=== PATIENT | female | born 1975 | race Caucasian/White ===

== ENCOUNTER 2024-06-29 09:19 | Emergency (ER) | payer BC, SELFPAY ==
[2024-06-29 12:35] LABS: % Basophils 0.7 % (0-2); % Eosinophils 7.4 % (0-6); % Immature Granulocytes 0.4 % (0-0.5); % Lymphocytes 21.8 % (20.5-51.1); % Monocytes 8.3 % (1.7-9.3); % Neutrophils 61.4 % (42.2-75.2); Absolute Basophils 0.1 10^3/uL (0-0.2); Absolute Eosinophils 0.6 10^3/uL (0-0.7); Absolute Lymphocytes 1.8 10^3/uL (1.2-3.4); Absolute Monocytes 0.7 10^3/uL (0.1-0.6); Hematocrit 40.1 % (37.0-47.0); Hemoglobin 13.9 g/dL (12.0-16.0); Mean Corp Hgb Conc. 34.7 g/dL (33.0-37.0); Mean Corpuscular Hgb 31.1 pg (27.0-31.0); Mean Corpuscular Volume 89.7 fL (81.0-99.0); Mean Platelet Volume 9.6 fL (7.4-10.4); Nucleated Red Blood Cells % 0 %; Platelet Count 313 10^3/uL (130-400); Red Blood Cell Count 4.47 10^6/uL (4.20-5.40); Red Cell Dist. Width 12.8 % (11.5-14.5); White Blood Cell Count 8.2 10^3/uL (4.8-10.8)
[2024-06-29 12:47] LABS: INR 0.98; PT 13.3 Sec (11.4-14.6)
[2024-06-29 12:48] LABS: APTT 27.6 Sec (23.4-35.0)
--- NOTE | 2024-06-29 12:57 | ED.GENMED ---
History of Present Illness
General
Chief Complaint: Skin Problem
Source: patient
Exam Limitations: none
Time Seen by Provider: 06/29/24 10:12
Nursing documentation reviewed up to this point in time: agreed with
History of Present Illness
History of Present Illness:
Patient is a 48-year-old female who presents to the ER for evaluation of leg bruising. Patient has a history of spider veins/varicose veins and noticed several days ago a new spider vein to her left lateral lower leg. This was on Saturday. In
addition she had a pedicure and had calf massage had her jeans raised up to this area so they could massage her lower leg. 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
and may have bumped on the dumpster. Since then she has noticed increasing bruising and bruising has extended down to the ankle and foot area. She denies any pain. She denies any swelling. She denies any injury. She is not on blood thinners.
She does take Motrin twice a day for joint aches. No prior history of DVT PE.
Review of Systems
Review of Systems
Allergies reviewed?: Yes
All Other Systems: ROS reviewed and negative except as documented in HPI and ROS
Constitutional: Reports no symptoms; Denies fever, fatigue or chills
Respiratory: Reports no symptoms
Cardiac: Reports no symptoms
ABD/GI: Reports no symptoms
Musculoskeletal: Reports other (bruising to left leg no lower extremity swelling )
Skin: Reports no symptoms
Phy Exam
General Physical Exam
General Presentation: no apparent distress
General age: appears stated age
General Skin: warm and dry
General Habitus: normal
General Mental: alert
Course
Orders/Labs/Results
Orders:
Orders
06/29/24 10:37
Venous Doppler Lwr Ext Left [US Periph Venous LOWER Ext LT] Urgent
Comment:
Reason For Exam: bruising /discomort
06/29/24 12:22
Complete Blood Count/With Diff Urgent
Comprehensive Metabolic Panel Urgent
PTT Urgent
Prothrombin Time Urgent
Abnormal Lab Results
06/29/24
12:22
MCH 31.1 H pg
(27.0-31.0)
Absolute Monos (auto) 0.7 H 10^3/uL
(0.1-0.6)
Eosinophils % 7.4 H %
(0-6)
Creatinine 0.5 L mg/dL
(0.6-1.0)
06/29/24 12:22
06/29/24 12:22
Vital Signs
Initial and Last Documented VS:
Initial Vital Signs
Temp Pulse Resp Pulse Ox
98.2 F 78 16 98
06/29/24 09:21 06/29/24 09:21 06/29/24 09:21 06/29/24 09:21
Last Documented Vital Signs
Temp Pulse Resp BP Pulse Ox
98.2 F 78 16 151/109 98
06/29/24 09:21 06/29/24 09:21 06/29/24 09:21 06/29/24 13:52 06/29/24 09:21
MDM/Problems Addressed
Differential Diagnosis Includes:
Less likely DVT, varicose vein/bruising
MDM/Problems Addressed:
Symptoms are consistent with bruising from varicose veins. Patient noticed a new spider veins/varicose vein and then also had a pedicure which consisted of massage her lower leg as well which likely worsened the bruising. She has had more bruising
extending down to the foot and ankle likely from gravity however no obvious swelling no complaints of shortness of breath fever chills no prior history of DVT PE. No other section. Ultrasound negative labs unremarkable including normal platelets
normal CBC and normal coags. Patient requested vascular surgery for outpatient follow-up for vein issues given information
*Radiology
Radiology exam reviewed: radiology read reviewed
*Pulse Oximetry
Patient hypoxic: no
*Critical Care Note
Total Time (30-74mins, 75-104mins- exclusive of procedures): Not Applicable
ED Attending Note
-
Portions of this chart may have been created with voice recognition software.� Occasional wrong word or��sound alike� substitutions may have occurred due to the inherent limitations of voice recognition software.
Discharge Plan
Departure
Patient Disposition: Home (Routine Discharge)
Date of Disposition: 06/29/24
Time of Disposition: 13:24
Patient with high blood pressure during this ER visit?: Yes
Condition: Fair
Discharge Problem:
Bruising, Varicose vein of leg
Instructions: Varicose Veins (DC)
Referrals:
Hodan Torres CRNP [Family Provider] -
Oskar Decker MD [Active] -
Activity Restrictions/Additional Instructions:
As discussed bruising is likely from varicose vein. there were no blood clots on your ultrasound and your labs are normal. Follow-up with vascular surgery as needed return if any worsening of symptoms.
Interventions
Interventions:
*Risk Screen - Suicide Last Done: 06/29/24 09:21
*General Assessment Last Done: 06/29/24 12:58
*Neglect/Abuse Screening Last Done: 06/29/24 09:21
ED- Fall Risk Assessment Last Done: 06/29/24 12:58
*ED COVID-19 Vaccine History Last Done: 06/29/24 12:58
*Nursing Disposition Last Done: 06/29/24 14:01
ED-Skin Assessment Last Done: 06/29/24 12:58
Discharge Date and Time
Discharge Date/Time: 06/29/24 14:01
Print Language: GEORGIAN
[2024-06-29 13:00] LABS: ALT (SGPT) 21 U/L (0-35); AST (SGOT) 27 U/L (14-36); Albumin 4.3 g/dl (3.5-5.0); Alkaline Phosphatase 50 U/L (38-126); Blood Urea Nitrogen 12 mg/dl (7-17); Calcium 9.4 mg/dl (8.4-10.2); Carbon Dioxide 23 mmol/L (22-30); Chloride 106 mmol/L (98-107); Glucose 96 mg/dl (70-99); Potassium 4.4 mmol/L (3.5-5.1); Sodium 137 mmol/L (135-145); Total Bilirubin 0.4 mg/dl (0.2-1.3); Total Protein 6.6 g/dl (6.3-8.2); eGFR > 60.00
[2024-06-29 13:52] VITALS: BP 151/109
== END 2024-06-29 14:01 | disposition home or self-care (01) ==
LOC: EMR 09:19
PROVIDERS: Nurse Practitioner; EMERGENCY PHYSICIAN Emergency Medicine; FAMILY PHYSICIAN Nurse Practitioner Family
DX: S80.12XA Contusion of left lower leg, initial encounter (principal); I83.812 Varicose veins of left lower extremity with pain; W22.09XA Striking against other stationary object, initial encounter; R03.0 Elevated blood-pressure reading, without diagnosis of hypertension
CPT/HCPCS: 99284; 80053; 85025; 85610; 85730; 93971